=== PATIENT | male | born 1975 | race Caucasian/White ===

== ENCOUNTER 2017-10-23 08:04 | Day surgery (SDC) | payer BC, SELFPAY | END 2017-10-23 10:25 | disposition home or self-care (01) | PROVIDERS: Family Provider Family Medicine; Visit Provider Internal Medicine Gastroenterology | DX: Z12.11 Encounter for screening for malignant neoplasm of colon (principal); K63.5 Polyp of colon; K64.0 First degree hemorrhoids; Z80.0 Family history of malignant neoplasm of digestive organs | CPT/HCPCS: 45380; 99152; 99153 ==

== ENCOUNTER → 2018-11-19 09:20 | Outpatient (CLI) | payer BC, SELFPAY ==
--- NOTE | 2018-11-19 09:25 | XR_ITS ---
XR hand LT min 3V HISTORY: Posttraumatic pain and swelling ITS.REASON: LT HAND PAIN ORDERING PHYSICIAN: Anca Wright MD PATIENT AGE: 43 years COMPARISON: None FINDINGS: Minimally displaced fracture involves the junction of the proximal mid third of the fourth metacarpal. The distal fracture fragment is displaced laterally by approximately 2 mm. There is good alignment. No other fractures are evident. IMPRESSION: Minimally displaced fracture of the proximal aspect of the fourth metacarpal
[2018-11-19 11:37] LABS: INR 1.02 (0.9-1.1); Prothrombin Time 10.5 seconds (9.4-11.8)
[2018-11-19 12:07] LABS: Basophils % 0.6 % (0.1-2.0); Eosinophils # 0.1 K/mm3 (0.0-0.4); Eosinophils % 1.2 % (0.1-12.0); Hematocrit 48.9 % (42.0-52.0); Hemoglobin 16.3 g/dL (14.1-18.0); Lymphocytes # 2.1 K/mm3 (0.7-4.5); Lymphocytes % 37.6 % (10-50); Mean Corpuscular HGB Conc 33.3 g/dL (31.8-35.4); Mean Corpuscular Hemoglobin 29.8 pg (27.0-31.2); Mean Corpuscular Volume 89.5 fl (80-94); Mean Platelet Volume 9.1 fl (7.4-10.4); Monocytes # 0.4 K/mm3 (0.1-1.0); Monocytes % 6.6 % (1.7-9.3); Neutrophils % 54.1 % (37.0-80.0); Platelet Count 131 K/mm3 (142-424); Red Blood Count 5.46 M/mm3 (4.60-6.20); Red Cell Distribution Width 13.8 % (11.5-17.5); White Blood Count 5.6 K/mm3 (4.8-10.8)
[2018-11-19 13:58] LABS: Alanine Aminotransferase 65 U/L (12-78); Albumin Level 3.9 gm/dL (3.4-5.0); Albumin/Globulin Ratio 1.3 (1.1-1.8); Alkaline Phosphatase 89 U/L (46-116); Anion Gap 10.7 mEq/L (5-15); Aspartate Amino Transferase 28 U/L (15-37); Bilirubin,Total 0.8 mg/dL (0.2-1.0); Blood Urea Nitrogen 14 mg/dL (7-18); Carbon Dioxide 29 mmol/L (21.0-32.0); Chloride 103 mmol/L (98-107); Creatinine,Serum 1.15 mg/dL (0.70-1.30); Estimated Glomerular Filt Rate 69 ml/min (>60); GFR (African American) 84 ML/MIN (>60); Globulin 2.9 gm/dl (1.3-3.2); Glucose 93 mg/dL (74-106); Potassium 3.7 mmoL/L (3.5-5.1); Sodium 139 mmol/L (136-145); Total Protein,Serum 6.8 gm/dL (6.4-8.2)
== END ==
PROVIDERS: PCP Family Medicine; Visit Provider Emergency Medicine
DX: M79.642 Pain in left hand (principal)
CPT/HCPCS: 36415; 73130; 80053; 85025; 85610

== ENCOUNTER → 2018-11-30 09:16 | Outpatient (CLI) | payer BC, SELFPAY ==
--- NOTE | 2018-11-30 09:20 | XR_ITS ---
XR hand LT 2V HISTORY: Follow-up fracture ITS.REASON: Lt hand fx ORDERING PHYSICIAN: Jenny Hernandez MD PATIENT AGE: 43 years COMPARISON: 11/19/2018 FINDINGS: Status post ORIF with dorsal bone plate stabilizing the oblique fracture at the mid to proximal fourth metacarpal. There is good alignment with no significant displacement. Only 2 views are obtained. IMPRESSION: Good alignment status post ORIF fourth metacarpal fracture.
== END ==
PROVIDERS: PCP Family Medicine; Visit Provider Orthopaedic Surgery
DX: M79.642 Pain in left hand (principal)
CPT/HCPCS: 73120

== ENCOUNTER → 2018-12-29 08:31 | Outpatient (CLI) | payer BC, SELFPAY ==
--- NOTE | 2018-12-29 08:36 | XR_ITS ---
XR hand LT min 3V HISTORY: Follow-up surgery/fracture ITS.REASON: sp ORIF lt 4th mc DOS 11/23/18 ORDERING PHYSICIAN: Jenny Hernandez MD PATIENT AGE: 43 years COMPARISON: 11/30/2018 FINDINGS: No change in the dorsal bone plate stabilizing the proximal to mid shaft fracture of the fourth metacarpal with good alignment. No significant callus formation.. Fracture line remains present IMPRESSION: Good alignment status post ORIF fourth metacarpal fracture
== END ==
PROVIDERS: PCP Family Medicine; Visit Provider Orthopaedic Surgery
DX: S62.329A Displaced fracture of shaft of unspecified metacarpal bone, initial encounter for closed fracture (principal); Z47.89 Encounter for other orthopedic aftercare
CPT/HCPCS: 73130

== ENCOUNTER 2019-01-11 13:00 | Outpatient (RCR) | payer BC, SELFPAY | END 2019-01-11 13:05 | disposition home or self-care (01) | LOC: OT 13:00 | PROVIDERS: Visit Provider Orthopaedic Surgery | DX: S62.355D Nondisplaced fracture of shaft of fourth metacarpal bone, left hand, subsequent encounter for fracture with routine healing (principal) | CPT/HCPCS: 97110; 97140; 97166; 97763 ==

== ENCOUNTER → 2019-01-12 08:34 | Outpatient (CLI) | payer BC, SELFPAY ==
--- NOTE | 2019-01-12 08:38 | XR_ITS ---
XR hand LT min 3V HISTORY: ITS.REASON: sp ORIF LT 4th MC sx 11/23/18 ORDERING PHYSICIAN: Jenny Hernandez MD PATIENT AGE: 43 years COMPARISON: 12/29/2018 FINDINGS: Status post ORIF proximal to mid fourth metacarpal fracture. Bone plate remains in place with good alignment of the fracture fragments. Fracture line is still visible not significantly changed. IMPRESSION: Good alignment status post ORIF nondisplaced fourth metacarpal fracture
== END ==
PROVIDERS: PCP Family Medicine; Visit Provider Orthopaedic Surgery
DX: Z47.89 Encounter for other orthopedic aftercare; S62.355A Nondisplaced fracture of shaft of fourth metacarpal bone, left hand, initial encounter for closed fracture
CPT/HCPCS: 73130

== ENCOUNTER → 2019-02-14 14:10 | Outpatient (CLI) | payer BC, SELFPAY ==
--- NOTE | 2019-02-14 14:13 | XR_ITS ---
XR hand LT min 3V HISTORY: Follow-up fracture ITS.REASON: sp ORIF LT 4th mc sx 11-23-18 ORDERING PHYSICIAN: Jenny Hernandez MD PATIENT AGE: 43 years COMPARISON: Left hand 01/12/2019 FINDINGS: The bone plate with multiple tiny threaded screws is again seen transfixing the oblique fracture of the fourth metacarpal in near anatomic alignment. There is no definite callus formation identified. Remaining metacarpals and all phalanges appear intact and the carpal bones appear normal. IMPRESSION: Stable ORIF fracture fourth metacarpal
== END ==
PROVIDERS: PCP Family Medicine; Visit Provider Orthopaedic Surgery
DX: S62.329A Displaced fracture of shaft of unspecified metacarpal bone, initial encounter for closed fracture (principal)
CPT/HCPCS: 73130

== ENCOUNTER → 2019-04-25 09:26 | Outpatient (CLI) | payer BC, SELFPAY ==
--- NOTE | 2019-04-25 09:31 | XR_ITS ---
XR hand LT min 3V HISTORY: Follow-up ORIF ITS.REASON: 3 views ORDERING PHYSICIAN: Jenny Hernandez MD PATIENT AGE: 43 years COMPARISON: 02/14/2019 FINDINGS: Bone plate remains present along the posterior aspect of proximal aspect of the fourth metacarpal stabilizing the nondisplaced fracture which is less apparent. IMPRESSION: Good alignment status post ORIF healing fourth metacarpal fracture
== END ==
PROVIDERS: PCP Family Medicine; Visit Provider Orthopaedic Surgery
DX: S62.329A Displaced fracture of shaft of unspecified metacarpal bone, initial encounter for closed fracture (principal)
CPT/HCPCS: 73130

== ENCOUNTER → 2021-10-02 14:32 | Outpatient (CLI) | payer BC, SELFPAY ==
--- NOTE | 2021-10-02 14:37 | XR_ITS ---
PROCEDURE: XR CHEST PORTABLE CLINICAL HISTORY: COVID TESTING COMPARISON: CR CXR CHEST(2 VIEWS-NOT PORTABLE) from 04/11/2015 FINDINGS: The cardiomediastinal silhouette and pulmonary vascularity are within normal limits. Vague increased density is present in the right 2nd interspace anteriorly suggesting a faint area of ground-glass infiltrate. The remaining lungs are clear. No acute bony abnormalities. IMPRESSION: Possible faint ground-glass infiltrate in the right midlung Dictated by: Gagandeep Man MD 10/02/2021 15:23 Gagandeep Man MD in [place] 10/02/2021 15:23
[2021-10-02 16:31] LABS: Eosinophils % 0.5 % (0.1-12.0); Hematocrit 45.5 % (42.0-52.0); Hemoglobin 16.5 g/dL (14.1-18.0); Lymphocytes # 1.5 K/mm3 (0.7-4.5); Lymphocytes % 53.9 % (10-50); Mean Corpuscular HGB Conc 36.3 g/dL (31.8-35.4); Mean Corpuscular Volume 85.5 fl (80-94); Mean Platelet Volume 9.8 fl (7.4-10.4); Monocytes # 0.2 K/mm3 (0.1-1.0); Monocytes % 6.8 % (1.7-9.3); Neutrophils % 37.8 % (37.0-80.0); Platelet Count 156 K/mm3 (142-424); Red Blood Count 5.32 M/mm3 (4.60-6.20); Red Cell Distribution Width 13.5 % (11.5-17.5); White Blood Count 2.7 K/mm3 (4.8-10.8)
[2021-10-02 17:05] LABS: MANUAL DIFFERENTIAL MANUAL DIFFERENTIAL (MANUAL DIFF)
[2021-10-02 17:25] LABS: Alanine Aminotransferase 61 U/L (12-78); Albumin Level 4.4 g/dl (3.5-5.0); Albumin/Globulin Ratio 1.5 (1.1-1.8); Alkaline Phosphatase 115 U/L (38-126); Anion Gap 8.4 mEq/L (5-15); Aspartate Amino Transferase 45 U/L (17-59); Bilirubin,Total 0.7 mg/dl (0.2-1.3); Blood Urea Nitrogen 19 mg/dl (9-20); Calcium 9.7 mg/dl (8.4-10.2); Carbon Dioxide 33 mmol/L (22.0-30.0); Chloride 97 mmol/L (98-107); Estimated Glomerular Filt Rate 65 ml/min (>60); GFR (African American) 79 ML/MIN (>60); Globulin 2.9 g/dL (1.3-3.2); Glucose 122 mg/dl (74-100); Potassium 3.4 mmoL/L (3.5-5.1); Sodium 135 mmol/L (136-145); Total Protein,Serum 7.3 g/dl (6.3-8.2)
[2021-10-02 20:51] LABS: Lymphocytes % 52 % (10-50); Monocytes % 5 % (2-9); Neutrophils % 43 % (42-76); Platelet Estimate Normal; Total Cells Counted 100
== END ==
PROVIDERS: PCP Family Medicine; Visit Provider Physician Assistant
DX: Z20.822 Contact with and (suspected) exposure to COVID-19 (principal)
CPT/HCPCS: 36415; 71045; 80053; 85007; 85025

== ENCOUNTER → 2021-10-11 09:40 | Outpatient (CLI) | payer BC, SELFPAY ==
--- NOTE | 2021-10-11 09:43 | XR_ITS ---
PROCEDURE: XR CHEST PORTABLE CLINICAL HISTORY: COVID OUTPATIENT COMPARISON: CR CXR CHEST(2 VIEWS-NOT PORTABLE) from 04/11/2015 CR XR CHEST PORTABLE from 10/02/2021 FINDINGS: The cardiomediastinal silhouette and pulmonary vascularity are within normal limits. Patchy areas of ground-glass attenuation are present in the mid lower lung zone on both sides suspicious for atypical/Covid19 pneumonia. No effusions. No acute bony abnormalities. IMPRESSION: Bilateral patchy areas of ground-glass infiltrates suspicious for Covid19 pneumonia Dictated by: Gagandeep Man MD 10/11/2021 10:08 Gagandeep Man MD in [place] 10/11/2021 10:08
[2021-10-11 11:24] LABS: Chloride 101 mmol/L (98-107); Potassium 3.4 mmoL/L (3.5-5.1); Sodium 137 mmol/L (136-145)
[2021-10-11 11:27] LABS: Alanine Aminotransferase 66 U/L (12-78); Albumin Level 3.8 g/dl (3.5-5.0); Albumin/Globulin Ratio 1.5 (1.1-1.8); Alkaline Phosphatase 93 U/L (38-126); Anion Gap 10.4 mEq/L (5-15); Aspartate Amino Transferase 30 U/L (17-59); Bilirubin,Total 0.6 mg/dl (0.2-1.3); Blood Urea Nitrogen 19 mg/dl (9-20); Carbon Dioxide 29 mmol/L (22.0-30.0); Estimated Glomerular Filt Rate 72 ml/min (>60); GFR (African American) 88 ML/MIN (>60); Globulin 2.6 g/dL (1.3-3.2); Total Protein,Serum 6.4 g/dl (6.3-8.2)
[2021-10-11 11:28] LABS: Calcium 9.3 mg/dl (8.4-10.2); Glucose 101 mg/dl (74-100)
[2021-10-11 11:38] LABS: Basophils # 0.1 K/mm3 (0-0.2); Basophils % 1.4 % (0.1-2.0); Eosinophils # 0.1 K/mm3 (0.0-0.4); Eosinophils % 1.2 % (0.1-12.0); Hemoglobin 14.8 g/dL (14.1-18.0); Lymphocytes # 2.3 K/mm3 (0.7-4.5); Lymphocytes % 34.2 % (10-50); Mean Corpuscular HGB Conc 35.3 g/dL (31.8-35.4); Mean Corpuscular Hemoglobin 30.7 pg (27.0-31.2); Mean Platelet Volume 9.1 fl (7.4-10.4); Monocytes # 0.5 K/mm3 (0.1-1.0); Monocytes % 7.5 % (1.7-9.3); Neutrophils # 3.8 K/mm3 (1.8-7.8); Neutrophils % 55.7 % (37.0-80.0); Platelet Count 336 K/mm3 (142-424); Red Blood Count 4.83 M/mm3 (4.60-6.20); Red Cell Distribution Width 14.4 % (11.5-17.5); White Blood Count 6.8 K/mm3 (4.8-10.8)
== END ==
PROVIDERS: PCP Family Medicine; Visit Provider Physician Assistant
DX: U07.1 COVID-19 (principal)
CPT/HCPCS: 36415; 71045; 80053; 85025

== ENCOUNTER 2022-03-20 17:44 | Emergency (ER) | payer BC, SELFPAY ==
[2022-03-20 18:18] VITALS: BP 149/97; PULSE 87; RESP 19; TEMP 37.1; O2SAT 96; BMI 30.5
--- NOTE | 2022-03-20 18:18 | HMH.EDUTC ---
[facility] [place] Clinical Impression: Bronchitis Pharyngitis Qualifiers: Pharyngitis/tonsillitis etiology: unspecified etiology Qualified Code(s): J02.9 - Acute pharyngitis, unspecified Disposition: Home, Self-Care Condition on Discharge: Good Instructions: DI for Pharyngitis/Tonsillopharyngitis -- Adult, DI for Acute Bronchitis Additional Instructions: Drink plenty of fluids. Take tylenol or ibuprofen for pain or fever. Take the medications as directed. Follow up with your regular doctor. GO TO THE ER FOR ANY WORSENING SYMPTOMS Prescriptions: Amoxicillin/Potassium Clav [Amox-Clav 875-125 mg Tablet] 1 tab PO BID #20 tab Transmission Status: Received by [id number] Benzonatate [Benzonatate 100mg cap] 100 mg PO TIDP PRN #30 cap PRN Reason: Cough [facility]: [id number] methylPREDNISolone [Medrol] 4 mg PO DIRECTED 6 Days #21 packet Transmission Status: [id number] Referrals: Jack Aguilera MD [Primary Care Provider] - Time of Disposition: 18:28 Medical Decision Making - Medical Records Medical records reviewed: No: I reviewed the patient's medical records. - Michele Inquiry Pt receiving controlled substance: No Vital Signs: 03/20/22 18:18 Temperature 98.8 F Temperature Source Oral Pulse Rate [Left Radial] 87 Respiratory Rate 19 Blood Pressure [Right Arm] 149/97 H Blood Pressure Mean [Right Arm] 114 02 Sat by Pulse Oximetry 96 - Lab Data Lab results reviewed: Yes: I reviewed the patient's lab results. Lab Results 03/20/22 18:08: Influenza Type A Ag Negative, Influenza Type B Ag Negative Orders (Tests/Meds): ORDERS Category Date Time Status Strep Scrn Group A (Rapid) Stat Lab 03/20/22 18:11 Received [facility] [place] - General Stated complaint: sore throat,congestion Time Seen by Provider: 03/20/22 18:18 - History of Present Illness Provider Complaint: He c/o sore throat, chest congestion, productive cough and malaise for the past 2 days. - Related Data Previous Rx's Medication Instructions Recorded Amoxicillin/Potassium Clav 1 tab PO BID #20 tab 03/20/22 [Amox-Clav 875-125 mg Tablet] Benzonatate [Benzonatate 100mg 100 mg PO TIDP PRN #30 cap 03/20/22 cap] methylPREDNISolone [Medrol] 4 mg PO DIRECTED 6 Days #21 03/20/22 packet Allergies Allergy/AdvReac Type Severity Reaction Status Date / Time erythromycin base Allergy Unknown I-HIVES Verified 03/20/22 18:23 [ERYTHROMYCIN BASE] [facility] History - Hepatitis A Screen Attestation statement:: This patient has been screened for Hepatitis A risk factors. I have reviewed the patient's past medical history: Yes Medical History: Reports:: Gastroesophageal Reflux Disease(GERD) Denies:: Cancer, Diabetes Mellitus Type 1, Diabetes Mellitus Type 2, Internal Pacemaker, MRSA, Seizures Other Medical History: Denies: Blood Transfusion Reaction Laterality Cases: Right: Other, Bilateral: Tonsillectomy Other Surgeries: No: Pacemaker Amputation: No Fractures: No - Social History Smoking Status: Never smoker Alcohol Intake: never Occupational Status: employed Household Members: spouse Family Hx:: Cancer, Hypertension ROS Obtained: Yes All systems reviewed & no additional complaints - Constitutional Constitutional: Reports as per HPI - Eyes Eyes: Denies eye discharge - ENT Ears, Nose, Mouth, and Throat: Reports as per HPI - Cardiovascular Cardiovascular: Denies chest pain - Respiratory Respiratory: Reports chest congestion, Reports cough, Denies dyspnea, Denies stridor, Denies wheezing Physical Exam - General General appearance: alert, in no apparent distress - Head Head exam: atraumatic, normocephalic, normal inspection - Eye Eye exam: Present: normal appearance, PERRL, EOMI - ENT ENT exam: Present: mucous membranes moist, normal external ear exam - Expanded ENT Exam TM/Canal exam: Bila
[2022-03-20 18:30] LABS: UTC Influenza A Antigen Negative (Negative); UTC Influenza B Antigen Negative (Negative)
[2022-03-20 18:32] VITALS: BP 149/97; PULSE 87; RESP 19; TEMP 37.1
[2022-03-20 18:48] LABS: Strep Scrn Group A (Rapid) Negative (Negative)
== END 2022-03-20 18:35 | disposition home or self-care (01) ==
PROVIDERS: Emergency Provider Nurse Practitioner Family; PCP Family Medicine
DX: J40 Bronchitis, not specified as acute or chronic (principal); J02.9 Acute pharyngitis, unspecified; R53.81 Other malaise; K21.9 Gastro-esophageal reflux disease without esophagitis; Z79.52 Long term (current) use of systemic steroids; Z88.0 Allergy status to penicillin; Z88.1 Allergy status to other antibiotic agents; Z88.3 Allergy status to other anti-infective agents; Z82.49 Family history of ischemic heart disease and other diseases of the circulatory system; Z80.9 Family history of malignant neoplasm, unspecified
CPT/HCPCS: 87430; 87804; 99213; G0463

== ENCOUNTER 2023-04-03 09:00 | Emergency (ER) | payer BC, SELFPAY ==
[2023-04-03 09:15] VITALS: BP 136/81; PULSE 64; RESP 18; TEMP 36.6; O2SAT 98; BMI 28.3
--- NOTE | 2023-04-03 09:27 | EXP.UTC ---
Discharge Plan Disposition Patient Disposition: Home, Self-Care Condition: Good Prescriptions Prescriptions: New methylprednisolone [Medrol (Guido)] 4 mg tablets,dose pack See Rx Instructions .Route .COMPLEX 6 Days Qty: 21 0RF Rx Instructions: taper pack; amoxicillin-pot clavulanate 875-125 mg Tablet 1 tab PO Q12H Qty: 20 0RF promethazine-DM 6.25-15 mg/5 mL syrup 5 ml PO Q6H PRN (Reason: cough) Qty: 118 0RF No Action omeprazole 20 mg capsule,delayed release(DR/EC) 20 mg PO DAILY Label Comments: TAKE 1 CAPSULE BY MOUTH TWICE DAILY Referrals Follow up/Referrals: Jack Aguilera MD [Primary Care Provider] - See instructions Activity Restrictions/Add. Instructions Additional Instructions/Restrictions: *Monitor Temp, Over the counter Motrin or Tylenol as directed/as needed Tylenol every 4 hours and Motrin every 6 hours (as long as your family doctor has told you that you can take it) for fever or pain. and straight to ER if unable to lower temp less than 101.0 after medication given *Warm salt water gargles may help to soothe the throat *Throat Lozenges? *Warm fluids like tea with honey may help to soothe the throat? *Sleep elevated *Humidifier/Vaporizer Your throat swab was sent for culture. Those results are typically sent to your primary care. Be sure to follow up in 2-3 days with your family doctor/primary care physician if no improvement so they can review those result and treat if necessary. If you don?t have a primary care doctor, I recommend you get one but in the mean time, you will have to return to a walk in clinic Follow up IMMEDIATELY for new or worsening symptoms or no Noticeable improvement over the next 48-72 hours. 911 for difficulty breathing or swallowing Clinical Impressions Clinical Impression: Pharyngitis, Sinusitis Instructions Patient Instructions: DI for Sinusitis, Sinusitis, Sore Throat Discharge ED Provider: Laura Castorena [facility] [place] H[place] General Stated complaint: congestion, sore throat, cough Mode of Arrival: Ambulatory Source of Information: Patient Limitations: No Limitations Time Seen by Provider: 04/03/23 09:27 Description of Symptoms (Recalled from Triage Doc. by RN): PATIENT C/O SORE THROAT, RUNNY NOSE AND COUGH X 4 DAYS HEENT Symptoms (Recalled from RN notes): Yes Resp Symptoms (Recalled from RN notes): Yes Skin Symptoms (Recalled from RN notes): No MS Symptoms (Recalled from RN notes): No Functional Status (Recalled from RN notes): WNL History of Present Illness Provider Complaint: He has been having sinus congestion and pressure for over a week States that for the last 4 days it has got worse and he is having severe sore throat and hurts when he swallows States that it kept waking him up last night so today he came in to get it checked Related Data Home Medications Medication Instructions Recorded Confirmed omeprazole 20 mg capsule,delayed 20 mg PO DAILY Acid reflux 04/03/23 04/03/23 release Previous Rx's Medication Instructions Recorded amoxicillin 875 mg-potassium 1 tab PO Q12H #20 tabs 04/03/23 clavulanate 125 mg tablet methylprednisolone 4 mg tablets in See Rx Instructions .Route 04/03/23 a dose pack (Medrol (Guido)) .COMPLEX 6 days #21 tabs promethazine-DM 6.25 mg-15 mg/5 mL 5 ml PO Q6H PRN cough #118 mL 04/03/23 oral syrup Allergies Allergy/AdvReac Type Severity Reaction Status Date / Time erythromycin base Allergy Unknown I-HIVES Verified 03/20/22 18:23 [ERYTHROMYCIN BASE] Worker's Comp Is this a Worker's Comp case?: No [facility] Disclaimer: The information contained in this section may have been updated after the patient was seen, as this information can be updated by other users. Social History Smoking Status: Never smoker alcohol intake: never current occupational status: employed Travel in the last 8 weeks: None household members: spouse current occupationa
[2023-04-03 09:31] LABS: UTC Strep Screen (Rapid) Negative (Negative)
[2023-04-03 09:47] VITALS: BP 136/81; PULSE 64; RESP 18; TEMP 36.6; O2SAT 98
== END 2023-04-03 09:50 | disposition home or self-care (01) ==
PROVIDERS: Emergency Provider Nurse Practitioner; PCP Family Medicine
DX: J01.90 Acute sinusitis, unspecified (principal); J02.9 Acute pharyngitis, unspecified
CPT/HCPCS: 87880; 99212; 99214; G0463

== ENCOUNTER 2024-06-04 10:28 | Outpatient (CLI) | payer BC, SELFPAY ==
[2024-06-04 11:45] LABS: Albumin Level 4.4 g/dl (3.5-5.0); Chloride 108 mmol/L (98-107); Potassium 4.2 mmoL/L (3.5-5.1); Sodium 140 mmol/L (136-145)
[2024-06-04 11:47] LABS: Alanine Aminotransferase 62 U/L (12-78); Aspartate Amino Transferase 29 U/L (17-59); Blood Urea Nitrogen 22 mg/dl (9-20); Estimated Glomerular Filt Rate 65 ml/min (>60); GFR (African American) 78 ML/MIN (>60)
[2024-06-04 11:48] LABS: Albumin/Globulin Ratio 1.8 (1.1-1.8); Alkaline Phosphatase 89 U/L (38-126); Anion Gap 10.2 mEq/L (5-15); Calcium 9.3 mg/dl (8.4-10.2); Carbon Dioxide 26 mmol/L (22.0-30.0); Chol/HDL Ratio 4.6 (1-3.5); Cholesterol 242 mg/dl (140-200); Globulin 2.4 g/dL (1.3-3.2); Glucose 95 mg/dl (74-100); HDL Cholesterol 53 mg/dl (40-60); Total Protein,Serum 6.8 g/dl (6.3-8.2); Triglycerides 169 mg/dl (30-150); VLDL Cholesterol 34 mg/dL (0-40)
[2024-06-04 11:59] LABS: Direct LDL Cholesterol 108.29 mg/dL (100-129)
== END 2024-06-04 23:59 | disposition home or self-care (01) ==
LOC: LAB 10:30
PROVIDERS: PCP Family Medicine; Visit Provider Family Medicine
DX: E78.5 Hyperlipidemia, unspecified (principal); R74.8 Abnormal levels of other serum enzymes
CPT/HCPCS: 36415; 80053; 80061

== ENCOUNTER 2024-06-08 18:50 | Emergency (ER) | payer BC, SELFPAY ==
[2024-06-08 19:00] VITALS: BP 139/85; PULSE 78; RESP 20; TEMP 36.9; O2SAT 97; BMI 29.8
--- NOTE | 2024-06-08 19:17 | ED_ITS ---
Discharge Plan Disposition Patient Disposition: Home, Self-Care Condition: Good Prescriptions Prescriptions: New benzonatate 100 mg capsule 100 mg PO TIDP PRN (Reason: Cough) Qty: 30 0RF methylprednisolone 4 mg Tablets,Dose Pack 4 mg PO DIRECTED 6 Days Qty: 21 0RF Rx Instructions: Take 1 pack as directed for 6 days amoxicillin-pot clavulanate 875-125 mg Tablet 1 tab PO Q12H Qty: 20 0RF Referrals Follow up/Referrals: Vernon Savage MD [Primary Care Provider] - See instructions Activity Restrictions/Add. Instructions Additional Instructions/Restrictions: Drink plenty of fluids. Take tylenol or ibuprofen for pain or fever. Take the medications as directed. Follow up with your regular doctor. GO TO THE ER FOR ANY WORSENING SYMPTOMS Clinical Impressions Clinical Impression: Bronchitis Sinusitis Qualifiers: Sinusitis location: unspecified location Chronicity: unspecified Qualified Code(s): J32.9 - Chronic sinusitis, unspecified Stand Alone Forms Stand Alone Forms: Work/School Release Instructions Patient Instructions: Sinusitis, DI for Sinusitis Print Language Print Language: Afghan Discharge ED Provider: Carlos Alfaro [facility] General Stated complaint: cough congestion Mode of Arrival: Ambulatory Source of Information: Patient Limitations: No Limitations Time Seen by Provider: 06/08/24 19:16 Description of Symptoms (Recalled from Triage Doc. by RN): PATIENT C/O COUGH, CONGESTION AND SINUS DRAINAGE THAT STARTED OVER THE WEEKEND HEENT Symptoms (Recalled from RN notes): Yes Resp Symptoms (Recalled from RN notes): Yes Skin Symptoms (Recalled from RN notes): No MS Symptoms (Recalled from RN notes): No Functional Status (Recalled from RN notes): WNL Related Data Previous Rx's ?Medication ?Instructions ?Recorded amoxicillin 875 mg-potassium 1 tab PO Q12H #20 tabs 06/08/24 clavulanate 125 mg tablet benzonatate 100 mg capsule 100 mg PO TIDP PRN Cough #30 caps 06/08/24 methylprednisolone 4 mg tablets in 4 mg PO DIRECTED 6 days #21 tabs 06/08/24 a dose pack Allergies Allergy/AdvReac Type Severity Reaction Status Date / Time erythromycin base Allergy Unknown I-HIVES Verified 03/20/22 18:23 [ERYTHROMYCIN BASE] Worker's Comp Is this a Worker's Comp case?: No PFSH PFS Disclaimer: The information contained in this section may have been updated after the patient was seen, as this information can be updated by other users. Medical History (Updated 06/08/24 @ 19:32 by Carlos Alfaro APRN) No significant past medical history Social History Smoking Status: Never smoker alcohol intake: never current occupational status: employed Travel in the last 8 weeks: None household members: spouse current occupational exposures/hazards: No caffeine: No ROS Obtained: Yes All systems reviewed & no additional complaints except as documented Constitutional Constitutional: Reports poor appetite Eyes Eyes: Reports system reviewed and no additional complaints, except as documented ENT Ears, Nose, Mouth, and Throat: Reports as per HPI Cardiovascular Cardiovascular: Reports system reviewed and no additional complaints, except as documented and Denies chest pain Respiratory Respiratory: Denies shortness of breath, Reports chest congestion, Reports cough, Denies stridor and Denies wheezing Gastrointestinal Gastrointestingal: Reports system reviewed and no additional complaints, except as documented; Denies abdominal pain, diarrhea or vomiting Musculoskeletal Musculoskeletal: Reports system reviewed and no additional complaints, except as documented and Denies arthralgias Integumentary/Breasts Skin/Breast: Reports system reviewed and no additional complaints, except as documented and Denies rash Neurologic Neurologic: Denies paresthesias Allergic/Immunologic Allergic/Immunologic: Denies wheezing Physical Exam General General appearance: alert and in no apparent distress Eye Eye exam: Present normal appearance, PERRL and EOMI ENT ENT exam: Present mucous membranes moist and normal external ear exam Expanded ENT Exam External ear exam: Present normal external inspection TM/Canal exam: Bilateral TM: erythema and bulging Nose exam: Absent sinus tenderness Nasal speculum exam: Bilateral: normal Mouth exam: Present normal external inspection; Absent drooling Teeth exam: Present normal inspection Throat exam: Present tonsillar erythema and tonsillomegaly Neck Neck exam: Present normal inspection, full ROM and trachea midline; Absent tenderness, lymphadenopathy or thyromegaly Chest Chest inspection: Present normal inspection and symmetric chest wall rise; Absent tenderness or rash Respiratory Respiratory exam: Present normal lung sounds bilaterally; Absent respiratory distress, wheezes, stridor or accessory muscle use Cardiovascular Cardiovascular exam: Present regular rate, normal rhythm and normal heart sounds Abdominal Exam Abdominal exam: Present soft; Absent distention, tenderness, guarding, rebound or rigidity Extremities Exam Extremities exam: Present normal inspection, full ROM and normal capillary refill; Absent tenderness or calf tenderness Back Exam Back exam: Present normal inspection and full ROM; Absent tenderness Neurological Exam Neurological exam: Present alert and oriented X3 Psychiatric Psychiatric exam: Present normal affect and normal mood Skin Skin exam: Present warm, dry, intact and normal color Lymphatic Lymphatic Findings: no adenopathy Medical Decision Making Medical Records Medical records reviewed: No I reviewed the patient's medical records. Michele Inquiry Pt receiving controlled substance: No Vital Signs: 06/08/24 19:00 Temperature 98.4 F Temperature Source Oral Pulse Rate [Right Brachial] 78 Respiratory Rate 20 Blood Pressure [Right Arm] 139/85 Blood Pressure Mean [Right Arm] 103 Blood Pressure Source [Right Arm] Automatic Cuff Blood Pressure Position [Right Arm] Sitting 02 Sat by Pulse Oximetry 97 Oxygen Delivery Method Room Air
[2024-06-08 19:31] VITALS: BP 139/85; PULSE 78; RESP 20; TEMP 36.9; O2SAT 97
== END 2024-06-08 19:35 | disposition home or self-care (01) ==
PROVIDERS: Emergency Provider Nurse Practitioner Family; PCP Family Medicine
DX: J20.9 Acute bronchitis, unspecified (principal); J01.90 Acute sinusitis, unspecified; R09.82 Postnasal drip; R05.9 Cough, unspecified; R09.81 Nasal congestion
CPT/HCPCS: 99212; 99214; G0463